=== PATIENT | female | born 1955 | race Hispanic/Latino ===

== ENCOUNTER 2018-03-09 05:48 | Observation (INO) | payer BC ==
[2018-03-08 12:20] VITALS: BP 126/65
[2018-03-08 12:35] LABS: BASOPHILS % (AUTO) 0.8 % (0.0-5.0); EOSINOPHILS % (AUTO) 2.7 % (0.0-8.0); LYMPHOCYTES % (AUTO) 33.6 % (21.0-51.0); MEAN CORPUSCULAR HEMOGLOBIN 26.5 pg (27.0-33.0); MEAN CORPUSCULAR HGB CONC 32.5 g/dL (32.0-36.0); MEAN CORPUSCULAR VOLUME 81.6 fL (79-99); MONOCYTES % (AUTO) 3.6 % (3.0-13.0); NEUTROPHILS % (AUTO) 59.3 % (40.0-77.0); NUCLEATED RED BLOOD CELLS 0.1 % (0.0-0.19); PLATELET COUNT (AUTO) 219 K/uL (130-400); RED BLOOD CELL COUNT(AUTO) 5.39 MIL/uL (4.00-5.50); RED CELL DISTRIBUTION WIDTH 14.1 % (11.0-15.5); WHITE BLOOD COUNT (AUTO) 11.2 K/uL (4.8-10.8)
[2018-03-08 13:11] LABS: CREATININE 0.9 mg/dL (0.5-1.5); POTASSIUM 3.7 mmol/L (3.5-5.1)
[2018-03-09] VITALS (24 sets, daily range): BP systolic 125–156; BP diastolic 67–86
[~2018-03-09] VITALS: Ht 160 cm; Wt 102.8 kg
[~2018-03-09 05:48] MED LIST: BISACODYL 10 MG SUPP.RECT RC PRN; CEFAZOLIN 3GM /D5W 100ML 100 ML IV SCH; CEFAZOLIN SODIUM 1 GM VIAL ONE; DEXTROSE 5 %-0.45 % NACL 1,000 ML IV SCH; DOCUSATE SODIUM 100 MG CAP PO PRN; ESCI10TA PO; HYDR25TA PO; INSU300I3 SQ; LIRA0.6P2 SQ; LOSA100T20 PO; MONT10TA21 PO; PROMETHAZINE HCL 25 MG/ML 1ML AMPULE IM PRN; SIMETHICONE 80 MG TAB.CHEW PO PRN; SODIUM CHLORIDE 0.9% 1000ML 1,000 ML IV ONE
[2018-03-09] MEDS ORDERED: LOSA25TA16 PO (06:03)
[2018-03-09] MEDS ORDERED: HYDR12.54 PO (06:05)
[2018-03-09] MEDS ORDERED: SIMV20TA6 PO (06:05)
[2018-03-09] MEDS ORDERED: MIDAZOLAM HCL 1 MG/ML 2ML VIAL ONE (08:25)
[2018-03-09] MEDS ORDERED: LIDOCAINE PF 2% 5ML ABBOJECT ONE (08:26)
[2018-03-09] MEDS ORDERED: ROCURONIUM 10MG/1ML SYR 10 MG/ML ML ONE ×2 (08:27→09:16)
[2018-03-09] MEDS ORDERED: FENTANYL CITRATE PF 50 MCG/1 ML 5ML AMP IV ONE ×3 (08:27→10:25)
[2018-03-09] MEDS ORDERED: PROPOFOL 10 MG/ML 20ML VIAL IV ONE ×2 (08:27→11:01)
[2018-03-09] MEDS ORDERED: ONDANSETRON HCL 4 MG/2 ML VIAL ONE ×2 (08:38→16:12)
[2018-03-09] MEDS ORDERED: MAGNESIUM SULFATE 1 GM/2 ML VIAL ONE (09:18)
[2018-03-09] MEDS ORDERED: DEXAMETHASONE SOD PHOSPHATE 10MG/ML 1ML VIAL ONE (10:25)
[2018-03-09] MEDS ORDERED: GLYCOPYRROLATE 1 MG/5 ML SYRINGE ONE (10:54)
[2018-03-09] MEDS ORDERED: NEOSTIGMINE 5MG/5ML SYR IV ONE (10:54)
[2018-03-09] MEDS ORDERED: FENTANYL CITRATE PF 50 MCG/1 ML 2ML VIAL ONE (11:11)
[2018-03-09] MEDS ORDERED: MEPERIDINE-PF 25 MG/ML SYG ONE ×2 (12:11→12:23)
[2018-03-09] MEDS ORDERED: PROMETHAZINE HCL 25 MG/ML 1ML AMPULE IM PRN ×2 (13:15)
[2018-03-09] MEDS ORDERED: BISACODYL 10 MG SUPP.RECT RC PRN (13:15)
[2018-03-09] MEDS ORDERED: MEPERIDINE-PF 75 MG/ML SYG IM PRN (13:15)
[2018-03-09] MEDS ORDERED: DOCUSATE SODIUM 100 MG CAP PO PRN (13:15)
[2018-03-09] MEDS ORDERED: SIMETHICONE 80 MG TAB.CHEW PO PRN (13:15)
[2018-03-09] MEDS: LACTATED RINGERS 1000ML 1,000 ML IV SCH ×2 (13:33→23:22)
[2018-03-09] MEDS ORDERED: ONDANSETRON HCL 4 MG/2 ML VIAL IVP PRN (16:15)
[2018-03-09] MEDS: INSULIN HUMULIN R 100 UNIT/ML 3ML SQ SCH ×2 (16:58→22:06)
[2018-03-09] MEDS: ACETAMINOPHEN-CODEINE 300/30MG TAB PO PRN (18:15)
[2018-03-10] MEDS: IBUPROFEN 600 MG TABLET PO PRN ×3 (01:47→15:52)
[2018-03-10 03:33] VITALS: BP 133/76
[2018-03-10] MEDS: ACETAMINOPHEN-CODEINE 300/30MG TAB PO PRN (04:07)
[2018-03-10 05:30] LABS: HEMATOCRIT 35.4 % (36-48); MEAN CORPUSCULAR VOLUME 81.8 fL (79-99); PLATELET COUNT (AUTO) 207 K/uL (130-400); RED BLOOD CELL COUNT(AUTO) 4.33 MIL/uL (4.00-5.50); RED CELL DISTRIBUTION WIDTH 14.1 % (11.0-15.5); WHITE BLOOD COUNT (AUTO) 13.9 K/uL (4.8-10.8)
[2018-03-10] MEDS: LACTATED RINGERS 1000ML 1,000 ML IV SCH ×2 (06:35→13:13)
[2018-03-10] MEDS: INSULIN HUMULIN R 100 UNIT/ML 3ML SQ SCH ×2 (06:39→11:30)
[2018-03-10 07:27] VITALS: BP 140/71
[2018-03-10] MEDS ORDERED: IBUPROFEN 800 MG TAB PO PRN (09:00)
[2018-03-10] MEDS ORDERED: ACETAMINOPHEN-CODEINE 300/30MG TAB PO PRN (09:00)
[2018-03-10] MEDS ORDERED: BISACODYL 10 MG SUPP.RECT RC PRN (09:00)
[2018-03-10] MEDS ORDERED: HYDROCODONE/ACETAMINOPHEN 5/325 MG TAB PO PRN (09:00)
[2018-03-10] MEDS ORDERED: SIMETHICONE 80 MG TAB.CHEW PO PRN (09:00)
[2018-03-10] MEDS ORDERED: DOCUSATE SODIUM 100 MG CAP PO PRN (09:00)
[2018-03-10 11:40] VITALS: BP 122/61
[2018-03-10 15:43] VITALS: BP 125/73
== END 2018-03-10 17:50 | disposition home or self-care (01) ==
LOC: DAH 05:48 → SUH 05:48 → WSH 05:49
PROVIDERS: ADMIT Obstetrics & Gynecology; ATTEND Obstetrics & Gynecology
DX: N95.0 Postmenopausal bleeding (principal); N73.6 Female pelvic peritoneal adhesions (postinfective)
CPT/HCPCS: 36415 ×2; 58552; 80048; 82948 ×7; 85025; 85027; 86850; 86900; 86901; 86922; 88305 ×2; 88307; 88331; 96372; A4215; A4351; A4354; A4510; A4600; A4649 ×3; C1769 ×2; G0378 ×36; J0690 ×2; J1100; J1815 ×2; J2001; J2175 ×3; J2250; J2405; J2550; J2704 ×2; J2710; J3010 ×4; J3475; J3490; J7030 ×3; J7042